=== PATIENT | male | born 1970 | race African-American/Black ===

== ENCOUNTER → 2021-06-19 | Outpatient (REF) ==
--- NOTE | 2021-06-19 12:13 | REP ---
INDICATION: DX-LBP COMPARISON: None. TECHNIQUE: AP, lateral, coned-down views of the lumbar spine. FINDINGS: Three views of the lumbosacral spine demonstrate satisfactory alignment and lordosis without acute fracture / compression injury or subluxation. Mild multilevel degenerative changes include minimal endplate sclerosis with marginal spurring. Subtle disc space narrowing at L4-5 and L5-S1 cannot be excluded. IMPRESSION: 1. No acute fracture / compression injury or subluxation. 2. Mild multilevel degenerative changes suggested by radiographic evaluation. <Electronically signed by Berry Ridley > 06/19/21 [id number]
== END ==
LOC: M PLAIMG 11:19
PROVIDERS: ATTEND Internal Medicine
DX: M54.5 Low back pain (principal)